=== PATIENT | female | born 1995 | race Caucasian/White ===

== ENCOUNTER 2021-11-10 15:06 | Emergency (ER) | payer OTHER ==
[~2021-11-10] VITALS: Ht 162.6 cm; Wt 60.1 kg
[2021-11-10] MEDS ORDERED: LEXA5TAB13 PO (15:20)
[2021-11-10] MEDS ORDERED: PROP60CA PO (15:20)
[2021-11-10] MEDS ORDERED: BOOSTRIX/ADACEL VACCINE (DIPHTH/PERTUSS/ACELL/TETANUS) 0.5ML SYR IM ONE (16:35)
[2021-11-10] MEDS ORDERED: AUGMENTIN 875 MG TAB PO ONE (17:30)
[2021-11-10] MEDS ORDERED: AMOX875T2 PO (17:31)
[2021-11-10 17:38] VITALS: BP 132/77
== END 2021-11-10 17:40 | disposition home or self-care (01) ==
LOC: M ED 15:06
DX: S61.251A Open bite of left index finger without damage to nail, initial encounter (principal); L08.9 Local infection of the skin and subcutaneous tissue, unspecified; W54.0XXA Bitten by dog, initial encounter